=== PATIENT | female | born 1965 | race African-American/Black ===

== ENCOUNTER 2016-07-30 11:54 | Emergency (ER) | payer MEDICARE, MEDICAID ==
[~2016-07-30] VITALS: Ht 172.7 cm; Wt 58.5 kg
[~2016-07-30 11:54] MED LIST: CEPH500C3 PO; ESTR1TAB12 PO; REME15TA PO; RLS MED
[2016-07-30 12:09] VITALS: BP 146/95; PULSE 69; RESP 17; TEMP 98.9; O2SAT 99
[2016-07-30] MEDS ORDERED: PARO40TA2 PO (13:08)
[2016-07-30] MEDS ORDERED: ESTR2TAB4 PO (13:08)
[2016-07-30] MEDS ORDERED: ZOFR8TAB4 SL (13:40)
[2016-07-30] MEDS ORDERED: MUPI2%T TOPICAL (13:40)
--- NOTE | 2016-07-30 13:40 | PD ---
HPI . Cold symptoms Chief Complaint: ENT Complaint Time Seen by Provider: 13:22 Travel History International Travel<30 days: No Contact w/Intl Traveler<30days: No Traveled to known affect area: No History of Present Illness HPI Patient presents with cold symptoms for more than a week. She has seen her primary care provider who prescribed Septra. She reports that she has completed the Septra but is not getting any better. She describes nasal congestion, sore throat, sore on the right side of her nose, vomiting, sweating , chills. PFSH Past Medical History Anxiety: Yes Depression: Yes Cardiovascular Problems: No Diabetes: No Diminished Hearing: No Gastrointestinal Disorders: Yes ("CYSTS" IN INTESTINES) Glaucoma: No Hepatitis: No Hiatal Hernia: No Hypertension: Yes Medical other: Yes (PARKINSONS) Musculoskeletal: Yes (TORN L ROTATOR CUFF) Parkinson's Disease: Yes Respiratory: No Immunizations Current: Yes Thyroid Disease: No Tetanus Vaccination: < 5 Years Influenza Vaccination: Yes ?: Not Menopausal: Yes : 2 Para: 0 Miscarriage: 2 Past Surgical History Abdominal Surgery: Yes (PARTIAL COLECTOMY) Gynecologic Surgery: Yes (HYSTERECTOMY) Hysterectomy: Yes Other Surgery: Yes Social History Alcohol Use: Yes (occ -mix drinks) Tobacco Use: Yes (cigar daily) Substance Use: No Allergies-Medications (Allergen,Severity, Reaction): Coded Allergies: Motrin (Verified Adverse Reaction, Severe, Nausea/Vomiting, 07/30/16) pt states she hasn't been able to take Motrin for years, as it makes her vomit. Amoxicillin (Verified Adverse Reaction, Intermediate, N&V, 07/30/16) Darvocet-N 100 (Verified Adverse Reaction, Intermediate, Nausea/Vomiting, 07/30/16) Doxycycline (Verified Adverse Reaction, Intermediate, N&V, 07/30/16) Erythromycin (Verified Adverse Reaction, Intermediate, Nausea/Vomiting, 07/30/16) Reported Meds & Prescriptions Reported Meds & Active Scripts Active Reported Paroxetine (Paroxetine HCl) 40 Mg Tab 40 Mg PO DAILY Estrace (Estradiol) 2 Mg Tab 2 Mg PO DAILY Review of Systems Except as stated in HPI: all other systems reviewed are Neg General / Constitutional: Positive: Fever, Chills HENT: Positive: Sore Throat, Rhinitis, Rhinorrhea, Congestion Respiratory: Positive: Cough Gastrointestinal: Positive: Nausea, Vomiting Skin: Positive Rash (on the right side of her nose.) Physical Exam Narrative GENERAL: Healthy-appearing woman in no acute distress. SKIN: Warm and dry. She has a cluster of raised lesions on the right side of her nose which are draining some yellowish material. HEAD: Atraumatic. Normocephalic. EYES: Pupils equal and round. ENT: No nasal bleeding or discharge. Mucous membranes pink and moist. Oropharynx has no erythema, exudate or tonsillar enlargement. NECK: Trachea midline. No masses. No cervical lymphadenopathy. CARDIOVASCULAR: Regular rate and rhythm. Heart sounds normal. RESPIRATORY: No accessory muscle use. Lungs clear with full air movement throughout. GASTROINTESTINAL: Abdomen soft, non-tender, nondistended. MUSCULOSKELETAL: No obvious deformities. No edema. NEUROLOGICAL: Awake and alert. No obvious cranial nerve deficits. Motor grossly within normal limits. Normal speech. PSYCHIATRIC: Appropriate mood and affect; insight and judgment normal. Data Data Last Documented VS Vital Signs Date Time Temp Pulse Resp B/P Pulse Ox O2 Delivery O2 Flow Rate FiO2 07/30/16 12:09 98.9 69 17 146/95 99 MDM Medical Decision Making Medical Screen Exam Complete: Yes Emergency Medical Condition: Yes Differential Diagnosis Differential diagnosis includes but is not limited to influenza, upper respiratory infection, bronchitis, pneumonia Narrative Course Patient presents with cold symptoms. She also has some nausea and vomiting. She has impetigo of the introitus of her right nare. Diagnosis Primary Impression: URI (upper respiratory infection) Qualified Code: J06.9 - Viral upper respiratory tract infection Additional Impressions: Impetigo Nausea and vomiting Qualified Code: R11.2 - Nausea and vomiting, intractability of vomiting not specified, unspecified vomiting type Patient Instructions: General Instructions, Impetigo (ED) Additional Instructions: I recommend the use of a Neti Pot. You may use a nasal spray such as Afrin for up to 3 days. You may take an opgm-uev-nxyjzgr antihistamine such as Zyrtec or Claritin as needed for runny secretions. You may take pseudoephedrine as needed for congestion. You will need to sign for this at the pharmacy. You may take a cough syrup such as Delsym as needed for cough. Scripts Ondansetron Odt (Zofran Odt)8 Mg Tab8 Mg SL Q8H PRN (NAUSEA OR VOMITING) #6 TAB Ref 0 Prov:Maddy Saul MD 07/30/16 Mupirocin Topical (Bactroban Topical)2 % Cream1 Applic TOPICAL TID 7 Days Ref 0 Prov:Maddy Saul MD 07/30/16 Disposition: 01 DISCHARGE HOME Condition: Stable Maddy Saul MD Jul 30, 2016 13:40
== END 2016-07-30 13:59 | disposition home or self-care (01) ==
LOC: PHEFT 11:54
DX: J06.9 Acute upper respiratory infection, unspecified (principal); R11.2 Nausea with vomiting, unspecified; L01.00 Impetigo, unspecified; I10 Essential (primary) hypertension; G20 Parkinson's disease; F17.290 Nicotine dependence, other tobacco product, uncomplicated
CPT/HCPCS: 99283

== ENCOUNTER 2017-04-14 18:27 | Emergency (ER) | payer MEDICAID, MEDICARE ==
[~2017-04-14] VITALS: Ht 167.6 cm; Wt 56.0 kg
[~2017-04-14 18:27] MED LIST changes: -CEPH500C3 PO; -ESTR1TAB12 PO; +ESTR2TAB4 PO; +MUPI2%T TOPICAL; +PARO40TA2 PO; -REME15TA PO; -RLS MED; +ZOFR8TAB4 SL
[2017-04-14 18:34] VITALS: BP 144/66; PULSE 83; RESP 16; TEMP 98.7; O2SAT 99
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
[2017-04-14] MEDS ORDERED: ACETAMINOPHEN/HYDROcodone 325 MG/5 MG TAB PO ONE (19:45)
[2017-04-14 20:45] VITALS: RESP 14
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
[2017-04-14] MEDS ORDERED: TRAM50TA PO (21:25)
== END 2017-04-14 21:37 | disposition home or self-care (01) ==
LOC: PHED 18:27 → PHEFT 21:37
DX: M75.31 Calcific tendinitis of right shoulder (principal); S70.01XA Contusion of right hip, initial encounter; W01.0XXA Fall on same level from slipping, tripping and stumbling without subsequent striking against object, initial encounter; Y92.009 Unspecified place in unspecified non-institutional (private) residence as the place of occurrence of the external cause; X37.0XXA Hurricane, initial encounter; F17.290 Nicotine dependence, other tobacco product, uncomplicated; I10 Essential (primary) hypertension; G20 Parkinson's disease
CPT/HCPCS: 73030; 73502; 99284

== ENCOUNTER 2017-07-18 21:59 | Emergency (ER) | payer MEDICARE, MEDICAID ==
[~2017-07-18] VITALS: Ht 172.7 cm; Wt 62.0 kg
[~2017-07-18 21:59] MED LIST changes: -MUPI2%T TOPICAL; -PARO40TA2 PO; +TRAM50TA PO; -ZOFR8TAB4 SL
[2017-07-18 22:01] VITALS: BP 170/77; PULSE 78; RESP 16; TEMP 98.1; O2SAT 99
[2017-07-18] MEDS ORDERED: ACETAMINOPHEN/HYDROcodone 325 MG/5 MG TAB PO ONE (22:45)
[2017-07-18] MEDS ORDERED: NORC5TAB PO (22:48)
--- NOTE | 2017-07-18 22:49 | PD ---
HPI . Finger injury Chief Complaint: Injury Time Seen by Provider: 22:42 Travel History International Travel<30 days: No Contact w/Intl Traveler<30days: No Traveled to known affect area: No History of Present Illness HPI This patient presents with chief complaint of an injury to her left third finger. She states that a rat jumped on her. This caused her to jump back. She inadvertently struck her left third finger on the door jam. She comes in complaining with pain in that finger since that time. She has not taken anything for it prior to arrival. She rates the pain 10/10. Pain is exacerbated by palpation. PFSH Past Medical History Anxiety: Yes Depression: Yes Cancer: No Cardiovascular Problems: No Diabetes: No Diminished Hearing: No Gastrointestinal Disorders: Yes ("CYSTS" IN INTESTINES) Glaucoma: No Hepatitis: No Hiatal Hernia: No Hypertension: Yes Medical other: Yes (PARKINSONS) Musculoskeletal: Yes (TORN L ROTATOR CUFF) Parkinson's Disease: Yes Respiratory: No Immunizations Current: Yes Thyroid Disease: No Tetanus Vaccination: < 5 Years Influenza Vaccination: Yes ?: Unknown Menopausal: Yes : 2 Para: 0 Miscarriage: 2 Past Surgical History Abdominal Surgery: Yes (PARTIAL COLECTOMY) Gynecologic Surgery: Yes (HYSTERECTOMY) Hysterectomy: Yes Other Surgery: Yes Social History Alcohol Use: Yes (occ -mix drinks) Tobacco Use: Yes (2 cigar daily) Substance Use: No Allergies-Medications (Allergen,Severity, Reaction): Coded Allergies: ibuprofen (Unverified Adverse Reaction, Severe, Nausea/Vomiting, 07/18/17) pt states she hasn't been able to take Motrin for years, as it makes her vomit. acetaminophen (Unverified Adverse Reaction, Intermediate, Nausea/Vomiting , 07/18/17) amoxicillin (Unverified Adverse Reaction, Intermediate, N&V, 07/18/17) doxycycline (Unverified Adverse Reaction, Intermediate, N&V, 07/18/17) erythromycin base (Unverified Adverse Reaction, Intermediate, Nausea/ Vomiting, 07/18/17) propoxyphene (Unverified Adverse Reaction, Intermediate, Nausea/Vomiting, 07/18/17) Reported Meds & Prescriptions Reported Meds & Active Scripts Active [place] (Hydrocodone-Acetaminophen) 5 Mg-325 Mg Tab 1 Tab PO Q4H PRN Tramadol (Tramadol HCl) 50 Mg Tab 50 Mg PO Q6H PRN Reported Estrace (Estradiol) 2 Mg Tab 2 Mg PO DAILY Review of Systems Except as stated in HPI: all other systems reviewed are Neg Physical Exam Narrative GENERAL: Awake and alert and in no acute distress. SKIN: Warm and dry. HEAD: Normocephalic/atraumatic. EYES: Pupils are equal. Extraocular movements are intact. NECK: Normal range of motion. RESPIRATORY: Nonlabored respirations. MUSCULOSKELETAL: Left third finger is swollen and bruised. It is tender particularly in the proximal phalanx. There is no gross deformity. She has normal capillary refill distally. She has normal sensation distally. PSYCHIATRIC: Appropriate mood and affect. Data Data Last Documented VS Vital Signs Date Time Temp Pulse Resp B/P (MAP) Pulse Ox O2 Delivery O2 Flow Rate FiO2 07/18/17 23:22 07/18/17 22:01 98.1 78 16 99 Room Air Orders Orders Finger ([id number]) (07/18/17 22:43) Acetamin-Hydrocod 325-5 Mg ([place] 5-325 (07/18/17 22:45) Splint Or Brace Apply/Monitor (07/18/17 23:11) Ed Discharge Order (07/18/17 23:11) MDM Medical Decision Making Medical Screen Exam Complete: Yes Emergency Medical Condition: Yes Differential Diagnosis Differential diagnosis of extremity trauma includes but is not limited to fracture, sprain or strain, dislocation, contusion Narrative Course Patient presents with an injury to her left middle finger. It is swollen and bruised and very tender. X-ray is pending. Her pain will be treated with [place]. Last Impressions Finger X-Ray 07/18/17 [id number] Signed Impressions: Service Date/Time: Tuesday, July 18, 2017 22:47 - CONCLUSION: Soft tissue swelling involving the third PIP joint and no definite fracture for technique. K. Rodriguez Zhu MD Diagnosis Primary Impression: Contusion of left middle finger without damage to nail Qualified Codes: S60.032A - Contusion of left middle finger without damage to nail, initial encounter Patient Instructions: Narcotic given in the ED Med/Other Pt SpecificInfo: Prescription(s) given Scripts Hydrocodone-Acetaminophen ([place]) 5 Mg-325 Mg Tab 1 TAB PO Q4H Y for PAIN, #12 TAB 0 Refills Prov: Maddy Saul MD 07/18/17 Disposition: 01 DISCHARGE HOME Condition: Stable Maddy Saul MD Jul 18, 2017 22:48
--- NOTE | 2017-07-18 23:03 | RADRPT ---
EXAM DATE/TIME: 07/18/2017 22:47 [facility] COMPARISON: No previous studies available for comparison. INDICATIONS : Left 3rd PIP joint pain after hitting wall today MEDICAL HISTORY : None. SURGICAL HISTORY : None. ENCOUNTER: Initial ACUITY: 1 day PAIN SCORE: 8/10 LOCATION: Left 3rd PIP joint FINDINGS: No definite fractures, or dislocations are identified. No definite lytic or sclerotic lesion is seen . Soft tissue swelling is identified. CONCLUSION: Soft tissue swelling involving the third PIP joint and no definite fracture for klaus Zhu MD on July 18, 2017 at 23:01 Board Certified Radiologist. This report was verified electronically.
--- NOTE | 2017-07-18 23:11 | PD ---
Physical Exam Time Seen by Provider: 23:08 Data Data Last Documented VS Vital Signs Date Time Temp Pulse Resp B/P (MAP) Pulse Ox O2 Delivery O2 Flow Rate FiO2 07/18/17 22:01 98.1 78 16 170/77 (108) 99 Room Air Orders Orders Finger ([id number]) (07/18/17 22:43) Acetamin-Hydrocod 325-5 Mg ([place] 5-325 (07/18/17 22:45) MDM Medical Record Reviewed: Yes Supervised Visit with AMY: No Narrative Course See Dr. Saul note for complete details of history of present illness. Briefly this patient hit her left third finger against a door jam when she fell. On examination she has soft tissue swelling, particularly in the left third PIP joint region, with associated limited range of motion. No open wounds. X-ray imaging reveals soft tissue swelling with no acute fracture. Suspect sprain to the left third PIP joint. She will be discharged with a finger splint, pain medication, and recommended follow-up with primary care physician in 2 weeks to ensure normal range of motion. She is stable for discharge. Diagnosis Primary Impression: Finger sprain Qualified Codes: S63.633A - Sprain of interphalangeal joint of left middle finger, initial encounter Patient Instructions: Narcotic given in the ED Additional Instruction: Medication as needed for pain. Do not drive or drink alcohol when taking this medication. Ice pack several times a day 15 minutes at a time. Follow-up in 2 weeks with primary care physician for recheck. Return for any emergent medical conditions. Med/Other Pt SpecificInfo: Prescription(s) given, Orthopedic Instructions Scripts Hydrocodone-Acetaminophen ([place]) 5 Mg-325 Mg Tab 1 TAB PO Q4H Y for PAIN, #12 TAB 0 Refills Prov: Maddy Saul MD 07/18/17 Disposition: 01 DISCHARGE HOME Condition: Stable Anam Maria Jul 18, 2017 23:11
== END 2017-07-18 23:23 | disposition home or self-care (01) ==
LOC: NEPD 21:59
DX: S63.633A Sprain of interphalangeal joint of left middle finger, initial encounter (principal); S60.032A Contusion of left middle finger without damage to nail, initial encounter; F41.9 Anxiety disorder, unspecified; F32.9 Major depressive disorder, single episode, unspecified; I10 Essential (primary) hypertension; G20 Parkinson's disease; F17.290 Nicotine dependence, other tobacco product, uncomplicated; W18.09XA Striking against other object with subsequent fall, initial encounter; Z79.899 Other long term (current) drug therapy
CPT/HCPCS: 73140; 99284

== ENCOUNTER 2017-08-24 06:55 | Emergency (ER) | payer MEDICARE, MEDICAID ==
[~2017-08-24] VITALS: Ht 170.2 cm; Wt 62.0 kg
[~2017-08-24 06:55] MED LIST changes: +NORC5TAB PO
[2017-08-24 06:59] VITALS: BP 129/60; PULSE 83; RESP 18; TEMP 98.7; O2SAT 98
--- NOTE | 2017-08-24 07:26 | PD ---
HPI Chief Complaint: GI Complaint Time Seen by Provider: 07:19 Travel History International Travel<30 days: No Contact w/Intl Traveler<30days: No Traveled to known affect area: No History of Present Illness HPI 52-year-old female presents to the emergency Department with complaint of hemorrhoids 2 days. Has history of hemorrhoidectomy in April or May. Says she did not receive surgery, but they tied them off. Denies change in urine or stool. Denies abdominal pain, fevers, vomiting. Has tried Tylenol and Preparation H for symptomatic management. Symptoms are mild to moderate in severity. Constantly aggravated. No known relieving factors. Dr. Lara is primary care provider. Denies other significant medical history. Allergies to Tylenol, amoxicillin, doxycycline, erythromycin base vacations, ibuprofen, propoxyphene. Has no other medical complaints. Other modifying factors or associated signs and symptoms. PFSH Past Medical History Anxiety: Yes Depression: Yes Cancer: No Cardiovascular Problems: No Diabetes: No Diminished Hearing: No Gastrointestinal Disorders: Yes ("CYSTS" IN INTESTINES) Glaucoma: No Hepatitis: No Hiatal Hernia: No Hypertension: Yes Medical other: Yes (PARKINSONS) Musculoskeletal: Yes (TORN L ROTATOR CUFF) Parkinson's Disease: Yes Respiratory: No Immunizations Current: Yes Thyroid Disease: No ?: Not Menopausal: Yes : 2 Para: 0 Miscarriage: 2 Past Surgical History Abdominal Surgery: Yes (PARTIAL COLECTOMY) Gynecologic Surgery: Yes (HYSTERECTOMY) Hysterectomy: Yes Other Surgery: Yes Social History Alcohol Use: Yes (occ -mix drinks) Tobacco Use: Yes (2 cigar daily) Substance Use: No Allergies-Medications (Allergen,Severity, Reaction): Coded Allergies: ibuprofen (Unverified Adverse Reaction, Severe, Nausea/Vomiting, 08/24/17) pt states she hasn't been able to take Motrin for years, as it makes her vomit. acetaminophen (Unverified Adverse Reaction, Intermediate, Nausea/Vomiting , 08/24/17) amoxicillin (Unverified Adverse Reaction, Intermediate, N&V, 08/24/17) doxycycline (Unverified Adverse Reaction, Intermediate, N&V, 08/24/17) erythromycin base (Unverified Adverse Reaction, Intermediate, Nausea/ Vomiting, 08/24/17) propoxyphene (Unverified Adverse Reaction, Intermediate, Nausea/Vomiting, 08/24/17) Reported Meds & Prescriptions Reported Meds & Active Scripts Active [place] (Hydrocodone-Acetaminophen) 5 Mg-325 Mg Tab 1 Tab PO Q4H PRN Tramadol (Tramadol HCl) 50 Mg Tab 50 Mg PO Q6H PRN Reported Estrace (Estradiol) 2 Mg Tab 2 Mg PO DAILY Review of Systems Except as stated in HPI: all other systems reviewed are Neg Physical Exam Narrative GENERAL: Well-nourished, well-developed black female patient, in no acute distress; afebrile, nontoxic-appearing SKIN: Warm and dry. HEAD: Atraumatic. Normocephalic. EYES: Pupils equal and round. No scleral icterus. No injection or drainage. ENT: Mucosa pink and moist. Airway patent. NECK: Trachea midline. CARDIOVASCULAR: Regular rate. RESPIRATORY: No accessory muscle use. GASTROINTESTINAL: Abdomen soft, non-tender, nondistended. Hepatic and splenic margins not palpable. Bowel sounds are active 4 quadrants. No guarding. Nonrigid. RECTAL EXAM: Exam done in the presence of a nurse. Tenderness illicited on EVANGELINA. Visualized external hemorrhoid; minimally swollen; non-thrombosed; without drainage or erythema. MUSCULOSKELETAL: No obvious deformities. No clubbing. No cyanosis. No edema. NEUROLOGICAL: Awake and alert. Oriented 3. No obvious cranial nerve deficits. Motor grossly within normal limits. Normal speech. PSYCHIATRIC: Appropriate mood and affect; insight and judgment normal. Data Data Last Documented VS Vital Signs Date Time Temp Pulse Resp B/P (MAP) Pulse Ox O2 Delivery O2 Flow Rate FiO2 08/24/17 06:59 98.7 83 18 129/60 (83) 98 Room Air MDM Medical Decision Making Medical Screen Exam Complete: Yes Emergency Medical Condition: Yes Medical Record Reviewed: Yes Differential Diagnosis Hemorrhoids, anal fissures, perirectal abscess Narrative Course 52-year-old female physical exam consistent with hemorrhoid. Discussed symptomatic management. Instructed patient to follow up with GI as needed. Instructed patient to follow up with primary care provider. Patient verbalizes understanding and agreement with treatment plan. Patient is medically cleared and stable for discharge. Discussed reasons to return to the emergency department. Patient agrees with treatment plan. The patients vital signs are stable and the patient is stable for outpatient follow-up and treatment. Patient discharged home, stable and in no acute distress. Diagnosis Primary Impression: Hemorrhoid Qualified Codes: K64.9 - Unspecified hemorrhoids Referrals: Primary Care Physician Patient Instructions: General Instructions, Hemorrhoids (ED) Additional Instructions: [id number] hemorrhoid cream as directed and as needed for symptom management Witch claribel to hemorrhoids as needed to reduce pain and inflammation Cold compresses to help reduce pain and inflammation [id number] stool softeners as directed and as needed for constipation Follow-up with primary care provider Follow up with GI as needed Return to the emergency department immediately for worsening of symptoms Med/Other Pt SpecificInfo: No Change to Meds, No Meds Exist/No RX given Disposition: 01 DISCHARGE HOME Condition: Stable Isabelle Singer Aug 24, 2017 07:26
== END 2017-08-24 07:47 | disposition home or self-care (01) ==
LOC: NEPD 06:55
DX: K64.9 Unspecified hemorrhoids (principal); F17.290 Nicotine dependence, other tobacco product, uncomplicated
CPT/HCPCS: 99284